=== PATIENT | male | born 1985 | race Caucasian/White ===

== ENCOUNTER 2017-09-16 18:37 | Emergency (ER) | payer OTHER ==
[~2017-09-16] VITALS: Ht 175.3 cm; Wt 98.3 kg
[2017-09-16 18:54] VITALS: TEMP 36.9; Ht 175.3 cm; Wt 98.3 kg
[2017-09-16] MEDS ORDERED: ACETAMINOPHEN 500 MG TAB PO STA (19:07)
--- NOTE | 2017-09-16 19:24 | DIAGNOSTIC IMAGING REPORT ---
CT HEAD WITHOUT CONTRAST (CT) CLINICAL HISTORY: Head trauma. Head pressure. Visual disturbances. COMPARISON STUDY: No previous studies for comparison. TECHNIQUE: Axial CT of the brain is performed from the vertex to the skull base. IV contrast was not administered for this examination. A dose lowering technique was utilized adhering to the principles of ALARA. CT DOSE: FINDINGS: No intra or extra-axial mass lesions are visualized. There is no CT evidence of acute cortical infarction. There is no evidence of midline shift. There is no acute hemorrhage. No calvarial fractures are visualized. There is no evidence of pathologic ventricular dilatation. There is no evidence of acute sinusitis IMPRESSION: No acute intracranial findings Electronically signed by: Kaden Gottlieb M.D. 09/16/2017 7:23 PM Dictated Date/Time: 09/16/2017 7:21 PM
--- NOTE | 2017-09-16 19:26 | DIAGNOSTIC IMAGING REPORT ---
CT OF THE CERVICAL SPINE CLINICAL HISTORY: Neck pain status post trauma COMPARISON STUDY: No previous studies for comparison. CT DOSE: 980.02 mGy.cm TECHNIQUE: CT scan of the cervical spine was performed from the skull base to the thoracic inlet. Images are reviewed in the axial, sagittal, and coronal planes. IV contrast was not administered for this examination. A dose lowering technique was utilized adhering to the principles of ALARA. FINDINGS: The visualized portions of the lung apices reveal no evidence of pneumothorax. The prevertebral soft tissues are normal. No fractures or subluxations are visualized. There is a slight reversal of the normal cervical lordosis. This may be secondary to muscle spasm or positioning. IMPRESSION: No evidence of acute fracture or traumatic subluxation. Electronically signed by: Kaden Gottlieb M.D. 09/16/2017 7:24 PM Dictated Date/Time: 09/16/2017 7:23 PM
[2017-09-16] MEDS ORDERED: NAPROSYN HOME PACK 250 MG VIAL PO STA (20:01)
[2017-09-16] MEDS ORDERED: CYCLOBENZAPRINE HCL 10 MG TAB PO STA (20:01)
[2017-09-16] MEDS ORDERED: FLEXERIL HOME PACK 10 MG VIAL PO STA (20:01)
[2017-09-16] MEDS ORDERED: NAPR-22 PO (20:03)
[2017-09-16] MEDS ORDERED: CYCL5TAB PO (20:03)
--- NOTE | 2017-09-16 20:05 | EMERGENCY ROOM VISIT NOTE ---
ED Visit Note First contact with patient: 18:59 CHIEF COMPLAINT: Head injury, severe neck pain HISTORY OF PRESENT ILLNESS: This 40-year-old male patient presented to the emergency department, ambulatory, approximately 6 hours after receiving a head injury at work. The patient states he was disassembling a bad when a heavy headboard fell backwards onto the posterior aspect of his head and neck. The patient is uncertain how heavy this was, but states it fell from a leaning position. There was no brief loss of consciousness. There has been one episode of vomiting. The patient complains of severe neck pain and head pressure behind his eyes. Patient states the neck pain radiates into his shoulder blades. He does also complain of nausea and some initial tingling in his hands. The patient denies visual disturbances, loss of consciousness, ongoing paresthesias, confusion, dizziness, or other concerning symptoms. The headache has been constant. The patient has taken no medications for the pain. The patient rates the pain as 7/10 and throbbing. The patient denies bowel or bladder dysfunction. The patient denies any other injuries. The patient was seen by urgent care and sent to the emergency department for evaluation due to the symptoms. REVIEW OF SYSTEMS: A 10 system review of systems was performed with positives and pertinent negatives listed in the history of present illness. All other systems were reviewed and are negative. ALLERGIES: None MEDICATIONS: None PMH: None SOCIAL HISTORY: The patient lives locally with family. He admits to using chewing tobacco. He denies drug, alcohol use. PHYSICAL EXAM: Vital Signs: Reviewed Nurse's notes, vital signs stable. GENERAL : This is a 32-year-old white male, in no acute distress, well-developed, well- nourished. NEURO: The patient is alert, oriented to person place and time, and coherent. Normal mini mental status exam. Negative Romberg and pronator drift. Cerebellar function intact. HEAD: Normocephalic, atraumatic. EYES: Pupils are equal round and reactive to light and accommodation. EOMs are full and optic discs and fundi are normal. There is no swelling or discoloration of the tissue surrounding the eyes. EARS: Negative boyce sign. External auditory canals clear without blood. No hemotympanum. NOSE: Patent without tenderness. No septal hematoma. FACE: No facial bone tenderness. NECK: Supple. There is significant cervical spine tenderness. The patient does have tenderness with movement of the neck. There is tenderness of the paraspinous muscles bilaterally. There is difficulty with movement of the bilateral upper extremities due to stiffness and pain. RADIOLOGY: CT HEAD WITHOUT CONTRAST (CT) CLINICAL HISTORY: Head trauma. Head pressure. Visual disturbances. COMPARISON STUDY: No previous studies for comparison. TECHNIQUE: Axial CT of the brain is performed from the vertex to the skull base. IV contrast was not administered for this examination. A dose lowering technique was utilized adhering to the principles of ALARA. CT DOSE: FINDINGS: No intra or extra-axial mass lesions are visualized. There is no CT evidence of acute cortical infarction. There is no evidence of midline shift. There is no acute hemorrhage. No calvarial fractures are visualized. There is no evidence of pathologic ventricular dilatation. There is no evidence of acute sinusitis IMPRESSION: No acute intracranial findings Electronically signed by: Kaden Gottlieb M.D. 09/16/2017 7:23 PM Dictated Date/Time: 09/16/2017 7:[address] OF THE CERVICAL SPINE CLINICAL HISTORY: Neck pain status post trauma COMPARISON STUDY: No previous studies for comparison. CT DOSE: 980.02 mGy.cm TECHNIQUE: CT scan of the cervical spine was performed from the skull base to the thoracic inlet. Images are reviewed in the axial, sagittal, and coronal planes. IV contrast was not administered for this examination. A dose lowering technique was utilized adhering to the principles of ALARA. FINDINGS: The visualized portions of the lung apices reveal no evidence of pneumothorax. The prevertebral soft tissues are normal. No fractures or subluxations are visualized. There is a slight reversal of the normal cervical lordosis. This may be secondary to muscle spasm or positioning. IMPRESSION: No evidence of acute fracture or traumatic subluxation. Electronically signed by: Kaden Gottlieb M.D. 09/16/2017 7:24 PM Dictated Date/Time: 09/16/2017 7:23 PM ED COURSE: I examined the patient. He was given Tylenol for pain initially. CT scans performed and reviewed by myself and radiologist as above. Suspect the symptoms are related to muscle spasms and a mild concussion. The patient was encouraged to use anti-inflammatories and muscle relaxers for his symptoms. He was given a dose of Flexeril and a home pack for Naprosyn here in the emergency department. Prescriptions are sent to the pharmacy. The patient was given a note for work until Wednesday, but was encouraged to follow-up with his PCP or employee health provider especially for any ongoing symptoms. All questions answered to the patient's satisfaction. Discharge instructions reviewed. The patient was discharged home in good condition ambulatory. I attest that I have personally reviewed the patient's current medication list. Patient was found to have normal blood pressure on screening and does not require follow-up. Differential diagnosis includes closed head injury, concussion, intracranial hemorrhage, skull fracture, contusion, headache, infection, malignancy, and others. DIAGNOSIS: Closed head injury, concussion, neck pain The chart was completed utilizing [employer] Speech voice recognition software. Grammatical errors, random word insertions, pronoun errors, and incomplete sentences are an occasional consequence of this system due to software limitations, ambient noise, and hardware issues. Any formal questions or concerns about the content, text, or information contained within the body of this dictation should be directly addressed to the provider for clarification. Current/Historical Medications Scheduled PRN Cyclobenzaprine Hcl (Flexeril), 5-10 MG PO TID PRN for Muscle Spasms Naproxen (Naprosyn), 500 MG PO BID PRN for Pain Allergies Uncoded Allergies: N (Allergy, Unknown, 04/06/02) NKDA (Allergy, Unknown, 04/06/02) Vital Signs Date Time Temp Pulse Resp B/P (MAP) Pulse Ox O2 Delivery O2 Flow Rate FiO2 09/16/17 20:23 69 19 146/87 97 09/16/17 18:56 16 09/16/17 18:54 36.9 69 18 156/104 98 Room Air Medications Administered Medications (Trade) Dose Ordered Sig/Erica Route Start Time Stop Time Status Last Admin Dose Admin Acetaminophen (Tylenol Tab) 1,000 mg NOW STAT PO 09/16/17 19:07 09/16/17 19:09 DC 09/16/17 19:32 1,000 MG Cyclobenzaprine HCl (Flexeril Tab) 10 mg NOW STAT PO 09/16/17 20:01 09/16/17 20:02 DC 09/16/17 20:18 10 MG Cyclobenzaprine HCl (FLEXERIL 10MG Home Pack) 1 homepack UD STAT PO 09/16/17 20:01 09/16/17 20:02 DC 09/16/17 20:01 1 HOMEPACK Naproxen (Naproxen 250MG Home Pack) 1 homepack UD STAT PO 09/16/17 20:01 09/16/17 20:02 DC 09/16/17 20:01 1 HOMEPACK Departure Information Impression Primary Impression: Closed head injury Additional Impressions: Concussion Neck pain Dispostion Home / Self-Care Condition GOOD Prescriptions Naproxen (Naprosyn) 500 Mg Tab 500 MG PO BID Y for Pain, #60 TAB Prov: Razia Franco PA-C 09/16/17 Cyclobenzaprine Hcl (FLEXERIL) 5 Mg Tab 5-10 MG PO TID Y for Muscle Spasms, #30 TAB PRN Prov: Razia Franco PA-C 09/16/17 Referrals No Doctor, Assigned (PCP) Patient Instructions ED Concussion, ED Head Injury Closed, ED Neck Back Pain General, [facility] Additional Instructions You have been treated in the Emergency Department for a Closed Head Injury. You have received pain medicine in the emergency department which impairs your ability to operate a vehicle. CT Scan of your head/brain and neck demonstrated no acute bleeding or other abnormalities. This does not completely rule out the risk for future damage to the brain. You have been prescribed Flexeril (cyclobenzaprine) 1-2 tabs orally, three times per day. Do NOT exceed 30 mg (6 tabs) per day. Take your first dose at bedtime as it can make you drowsy. Always take all medications as prescribed. For pain control, you can use the following [id number] medicines (if >12 yo): You have been prescribed naproxen 500 mg twice daily to be used for pain. Take with food. Avoid using more than 1000mg in a 24 hour period. Do not use 1000mg per day for more than three consecutive days without physician direction. Prolonged inappropriate use can lead to stomach upset or ulcers. (AND/OR) Acetaminophen(Tylenol) may be used for fever or pain. Use 1000mg every six hours as needed. Avoid using more than 3000mg in a 24 hour period. You should relax in a quiet, dark place for the rest of the day. Avoid any possible triggers including: cigarette smoke, caffeine, nicotine, chocolate, wine, beer, loud noises or music, or bright lights. You should schedule a follow-up appointment in 2-3 days with your Primary Care Provider or established Neurologist for further evaluation and treatment of your Headache. Return to the Emergency Department if your current symptoms worsen despite treatment course outlined above, or if you develop any of the following symptoms : intractable pain despite aforementioned treatment course, visual disturbances , loss of vision, unilateral weakness or facial drooping, slurring of speech, loss of coordination, or loss of consciousness. Problem Qualifiers Primary Impression: Closed head injury Encounter type: initial encounter Qualified Codes: S09.90XA - Unspecified injury of head, initial encounter Additional Impressions: Concussion Encounter type: initial encounter Loss of consciousness presence/duration: without LOC Qualified Codes: S06.0X0A - Concussion without loss of consciousness, initial encounter
[2017-09-16 20:23] VITALS: BP 146/87; PULSE 69; O2SAT 97
== END 2017-09-16 20:24 | disposition home or self-care (01) ==
LOC: C.EDB 18:38 → C.EDD 20:24
DX: S06.0X0A Concussion without loss of consciousness, initial encounter (principal); M54.2 Cervicalgia; Y99.0 Civilian activity done for income or pay; W22.8XXA Striking against or struck by other objects, initial encounter; F17.220 Nicotine dependence, chewing tobacco, uncomplicated